=== PATIENT | male | born 1965 | race Hispanic/Latino ===

== ENCOUNTER 2018-09-22 19:15 | Emergency (ER) | payer BC ==
[~2018-09-22] VITALS: Ht 177.8 cm; Wt 122.5 kg
[2018-09-22] MEDS ORDERED: LIDOCAINE 5% PATCH TP SCH (20:30)
[2018-09-22] MEDS ORDERED: ASPIRIN 81 MG CHEW TAB PO ONE (20:30)
--- NOTE | 2018-09-22 21:09 | Diagnostic Imaging Report ---
History: Headache Comparison studies: None Technique: Axial images were obtained from the skull base to the vertex. Coronal and sagittal reconstructions obtained from the axial data. Dose modulation, iterative reconstruction, and/or weight based adjustment of the mA/kV was utilized to reduce the radiation dose to as low as reasonably achievable. Findings: Scalp/skull: No abnormalities. No fractures, blastic or lytic lesions. Extra-axial spaces: No masses. No fluid collections. Brain sulci: Appropriate for age. Ventricles: Normal in size and configuration. No hydrocephalus. Parenchyma: No abnormal densities. No masses, hemorrhage, acute or chronic cortical vascular insults. Sellar/suprasellar region: No abnormalities Craniocervical junction: Patent foramen magnum. No Chiari one malformation. IMPRESSION: No abnormalities. Signed by: Dr. Ancelmo Mccollum M.D. on 09/22/2018 9:06 PM
[2018-09-22 21:27] LABS: BASOPHILS % 0.5 % (0.0-1.0); EOSINOPHILS # (AUTO) 0.1 (0.0-0.4); EOSINOPHILS % 1.8 % (0.0-6.0); HEMATOCRIT 38.1 % (38.2-49.6); HEMOGLOBIN 12.6 g/dL (14.0-18.0); LYMPHOCYTES # (AUTO) 2.1 (1.0-3.2); LYMPHOCYTES % 27.9 % (18.0-39.1); MEAN CORPUSCULAR HEMOGLOBIN 30.1 pg (28-32); MEAN CORPUSCULAR HGB CONC 33.1 g/dL (31-35); MEAN CORPUSCULAR VOLUME 91.1 fL (81-99); MONOCYTES # (AUTO) 0.5 (0.2-0.8); MONOCYTES % 6.1 % (4.4-11.3); NEUTROPHILS # (AUTO) 4.7 (2.1-6.9); NEUTROPHILS % 63.4 % (38.7-80.0); PLATELET COUNT 229 x10e3/uL (140-360); RED BLOOD COUNT 4.18 x10e6/uL (4.3-5.7); RED CELL DISTRIBUTION WIDTH 13.2 % (11.7-14.4)
--- NOTE | 2018-09-22 21:28 | Diagnostic Imaging Report ---
Examination: Single PA view of the chest. COMPARISON: None. INDICATION: Chest pain DISCUSSION: Lines/tubes: None. Lungs: The lungs are well inflated and clear. There is no evidence of pneumonia or pulmonary edema. Pleura: There is no pleural effusion or pneumothorax. Heart and mediastinum: Cardia mediastinal silhouette is unremarkable. Pulmonary vasculature is normal. Bones and soft tissues: No acute bony abnormalities. Age-appropriate degenerative changes in the thoracic spine. IMPRESSION: 1. No acute cardiopulmonary abnormalities. Signed by: Dr. Rodrick Marcelino M.D. on 09/22/2018 9:24 PM
[2018-09-22 21:29] LABS: BILIRUBIN,URINE NEGATIVE (NEGATIVE); CLARITY,URINE SL CLOUDY (CLEAR); COLOR,URINE YELLOW (YELLOW); KETONES,URINE TRACE (NEGATIVE); LEUKOCYTE ESTERASE ,URINE NEGATIVE (NEGATIVE); NITRITE,URINE NEGATIVE (NEGATIVE); PROTEIN,URINE DIPSTICK 2+ (NEGATIVE); URINE UROBILINOGEN 0.2 mg/dL (0.2 - 1)
[2018-09-22 21:37] LABS: INR 0.86; PROTHROMBIN TIME 12.2 seconds (11.9-14.5)
[2018-09-22 21:38] LABS: PARTIAL THROMBOPLASTIN TIME 29.7 seconds (23.8-35.5)
[2018-09-22 21:41] LABS: BACTERIA,URINE FEW /HPF; EPITHELIAL CELLS,URINE FEW /LPF; RBC,URINE 0-5 /HPF (0-5)
[2018-09-22 21:44] LABS: ALBUMIN 3.8 g/dL (3.5-5.0); ALBUMIN/GLOBULIN RATIO 1.1 (0.8-2.0); ANION GAP 12.8 mmol/L (8-16); CALCIUM 9.7 mg/dL (8.4-10.2); CREATININE, SERUM 1.48 mg/dL (0.72-1.25); POTASSIUM 4.8 mmol/L (3.5-5.1)
[2018-09-22 21:50] LABS: CREATINE KINASE MB 8.3 ng/mL (0-5.0)
[2018-09-22] MEDS ORDERED: SODIUM CHLORIDE 0.9% 1000ML 1,000 ML IV SCH (22:15)
== END 2018-09-22 23:00 | disposition home or self-care (01) ==
LOC: ER 19:15
DX: R07.89 Other chest pain (principal); I10 Essential (primary) hypertension; E11.9 Type 2 diabetes mellitus without complications; E78.5 Hyperlipidemia, unspecified
CPT/HCPCS: 36415; 70450; 71045; 80053; 81001; 82550; 82553; 83880; 84484; 85025; 85610; 85730; 93005; 99284; J7030

== ENCOUNTER 2023-05-04 19:27 | Emergency (ER) | payer BC ==
[~2023-05-04] VITALS: Ht 177.8 cm; Wt 122.5 kg
[~2023-05-04 19:27] MED LIST: LEVAQUIN500 MG PO; ULTRAM50 MG PO
[2023-05-04] MEDS ORDERED: SODIUM CHLORIDE 0.9% 1000ML 1,000 ML IV ONE ×2 (19:45→22:30)
[2023-05-04] MEDS ORDERED: LIDOCAINE JELLY 2% 10ML URO-JET TOP ONE (19:45)
[2023-05-04 20:01] LABS: BASOPHILS # (AUTO) 0.1 (0.0-0.1); BASOPHILS % 0.4 % (0.0-1.0); EOSINOPHILS # (AUTO) 0.1 (0.0-0.4); EOSINOPHILS % 0.6 % (0.0-6.0); HEMATOCRIT 37.4 % (38.2-49.6); HEMOGLOBIN 13.3 g/dL (14.0-18.0); LYMPHOCYTES # (AUTO) 2.2 (1.0-3.2); LYMPHOCYTES % 15.9 % (18.0-39.1); MEAN CORPUSCULAR HEMOGLOBIN 31.9 pg (28-32); MEAN CORPUSCULAR HGB CONC 35.6 g/dL (31-35); MEAN CORPUSCULAR VOLUME 89.7 fL (81-99); MONOCYTES # (AUTO) 0.7 (0.2-0.8); MONOCYTES % 5.3 % (4.4-11.3); NEUTROPHILS # (AUTO) 10.9 (2.1-6.9); NEUTROPHILS % 77.5 % (38.7-80.0); PLATELET COUNT 216 x10e3/uL (140-360); RED BLOOD COUNT 4.17 x10e6/uL (4.3-5.7); RED CELL DISTRIBUTION WIDTH 13.2 % (11.7-14.4); WHITE BLOOD COUNT 14.01 x10e3/uL (4.8-10.8)
[2023-05-04 20:20] LABS: ALBUMIN 4.2 g/dL (3.5-5.0); ALBUMIN/GLOBULIN RATIO 1.2 (0.8-2.0); ANION GAP 15.2 mmol/L (8-16); CREATININE, SERUM 1.75 mg/dL (0.72-1.25); POTASSIUM 4.2 mmol/L (3.5-5.1)
[2023-05-04 20:26] LABS: CLARITY,URINE CLOUDY (CLEAR); COLOR,URINE RED (YELLOW)
[2023-05-04 20:38] LABS: KETONES,URINE NEGATIVE (NEGATIVE); LEUKOCYTE ESTERASE ,URINE NEGATIVE (NEGATIVE); NITRITE,URINE NEGATIVE (NEGATIVE); PROTEIN,URINE DIPSTICK >=300 (NEGATIVE); URINE UROBILINOGEN 0.2 mg/dL (0.2 - 1)
[2023-05-04 20:39] LABS: AMORPHOUS SEDIMENT,URINE MODERATE (FEW); BACTERIA,URINE FEW /HPF; RBC,URINE >50 /HPF (0-5); WBC,URINE (MAN) 0-5 /HPF (0-5)
[2023-05-04] MEDS ORDERED: LEVOFLOXACIN750 MG PO (22:25)
[2023-05-04 23:02] VITALS: BP 129/62; PULSE 76; RESP 16; TEMP 99; O2SAT 99
== END 2023-05-04 23:03 | disposition home or self-care (01) ==
LOC: ER 19:32
DX: R33.9 Retention of urine, unspecified (principal); R31.9 Hematuria, unspecified; R39.11 Hesitancy of micturition; E11.65 Type 2 diabetes mellitus with hyperglycemia; E78.5 Hyperlipidemia, unspecified; I25.10 Atherosclerotic heart disease of native coronary artery without angina pectoris
CPT/HCPCS: 36415; 51702; 74176; 80053; 81001; 85025; 87086; 87186; 99284; J7030; 51700